=== PATIENT | female | born 1970 | race Native Hawaiian/Other Pacific Islander ===

== ENCOUNTER 2016-09-09 16:54 | Outpatient (CLI) | payer BC | END 2016-09-09 18:00 | disposition home or self-care (01) | LOC: RAD 16:54 | DX: Z13.820 Encounter for screening for osteoporosis (principal) ==

== ENCOUNTER 2016-10-19 14:10 | Outpatient (CLI) | payer BC | END 2016-10-19 15:25 | disposition home or self-care (01) | LOC: RESP 14:10 | DX: R06.02 Shortness of breath (principal) ==